=== PATIENT | male | born 1975 | race Caucasian/White ===

== ENCOUNTER 2023-11-04 12:37 | Outpatient (AMB) | payer MEDICARE, SELFPAY ==
--- NOTE | 2023-11-04 12:40 | AM.OFFWIN_ITS ---
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 Denies any recent fevers, chills, nausea or vomiting. Denies any H/o herpes. PFSH Social History Patient Tobacco Use Status: Current everyday Tobacco user Review of Systems Const All systems reviewed & are unremarkable except as noted in HPI and below Physical Exam Vital Signs: Last Vital Signs Temp 97.5 F 11/04/23 12:47 Pulse 93 11/04/23 12:47 BP 134/80 11/04/23 12:47 Pulse Ox 96 11/04/23 12:47 Oxygen Delivery Method Room Air 11/04/23 12:47 Const General: comfortable and no acute distress HEENT Head: Yes normocephalic and Yes atraumatic Ears: external ears normal and TM's normal bilaterally General nose exam: Normal nares present Face and sinus: Yes sinuses nontender Mouth: moist mucous membranes, lip abnormal and Abnormal oral and palatal mucosa present erythematous and vesicles (Upper and lower lips) Throat: Yes posterior oropharynx normal Resp Effort & Inspection: normal respiratory effort and able to speak in complete sentences Auscultation: clear to auscultation bilaterally Assessment & Plan Assessment & Plan (1) Cold sore: Code(s): B00.1 - Herpesviral vesicular dermatitis Plan: - Ordered HSV labs - May use OTC Abreva - Will start Oral Valtrex today. Orders: Orders Herpes Simplex Virus Ab IgG Today B00.1 - Herpesviral vesicular dermatitis Medications: New valacyclovir (Valtrex) 1,000 mg PO DAILY 5 days 5 tabs 0RF B00.1 - Herpesviral vesicular dermatitis Coding Level of Care Code New Pt Level 3 (39377) Diagnoses Cold sore B00.1 Time Spent (min) 15
[2023-11-04 12:47] VITALS: BP 134/80; PULSE 93; TEMP 36.4; O2SAT 96
== END 2023-11-04 13:23 | disposition home or self-care (01) ==
PROVIDERS: PCP Internal Medicine; Visit Provider Nurse Practitioner Family
DX: B00.1 Herpesviral vesicular dermatitis (principal)
CPT/HCPCS: 99203

== ENCOUNTER 2023-11-04 13:00 | Outpatient (REF) | payer MEDICARE, SELFPAY ==
[2023-11-07 19:13] LABS: Herpes Simplex Type 1 IgG <0.90 index; Herpes Simplex Type 2 IgG <0.90 index
== END 2023-11-04 13:01 | disposition home or self-care (01) ==
LOC: HO.HMGCLDS 13:00
PROVIDERS: Visit Provider Nurse Practitioner Family
DX: B00.1 Herpesviral vesicular dermatitis (principal)
CPT/HCPCS: 36415; 86695; 86696

== ENCOUNTER 2025-01-04 12:51 | Outpatient (AMB) | payer MEDICARE, SELFPAY ==
--- OUTSIDE RECORDS SUMMARY | 2025-01-04 13:29 | XMS_ITS | Clinical Summary ---
Author Organization [employer] Address [address] [place] [address] Care Team Providers Care Cadastral Surveyor Name Role Phone Unavailable Primary Care Provider Unavailabl e Encounters Date Type Department Care Team Description 12/24/2024 Telephone [facility] [address] [place] [address] Mely Monreal RN ER Follow-up 12/21/2024 Telephone [facility] [address] [place] [address] Fahad Dent MD New patient appt. from Last 3 Months Social History Tobacco Use Types Packs/Day Years Used Date Smoking Tobacco: Never Assessed Sex and Gender Information Value Date Recorded Sex Assigned at Male 07/12/2022 10:28 AM EDT Legal Sex Male 10:28 AM EDT Gender Identity Male 01/03/2025 9:35 AM EDT Sexual Orientation Straight 01/03/2025 9: 35 AM EDT Plan of Treatment Upcoming Encounters Date Type Department Care Team (Late st Contact Info) Description 01/07/2025 9:00 AM EDT Telemedicine [facility] [address] [place] [address] Fahad Dent MD [address] [place] [address] Health Maintenance Due Date Last Done Comments CT Colonography 1976 Colonoscopy 1976 Colorectal Cancer Screening 1976 Depression Screening 1976 FIT DNA/Cologuard 1976 FIT 1976 FOBT 1976 HIV Screening 1976 Lipid Panel 1976 SDOH Screening 1976 Sigmoidoscopy 1976 Alcohol/Substance Use Screening 1988 Tobacco Screening 1988 Family Planning (PISQ) 1991 Hepatitis C Screening 1994 Hepatitis B Vaccines (3 of 3 - 19+ 3-dose series) 12/22/2016 07/21/2016, 06/23/2016 DTaP/Tdap/Td Vaccines (2 - Td or Tdap) 04/16/2024 04/16/2014 COVID-19 Vaccine ( - season) 2024 06/02/2022, 07/31/2021, 12/31/2020, Additional history exists Influenza Vaccine (#1) 2024 06/23/2016, 2014 Zoster Vaccines (1 of 2) 2026 RSV Patients and Patients Aged 60 years or older (1 - 1-dose 75+ series) 2051 HIB Vaccines Aged Out No longer eligi ble based on patient's age to complete this topic HPV Vaccines Aged Out No longer eligi ble based on patient's age to complete this topic Hepatitis A Vaccines Aged Out No long er eligible based on patient's age to complete this topic IPV Vaccines Aged Out No longer eligi ble based on patient's age to complete this topic Meningococcal Vaccine Aged Out No deangelo bernard eligible based on patient's age to complete this topic Pneumococcal Vaccine: Pediatrics (0 to 5 Years) and At-Risk Patients (6 to 49) Years) Aged Out No longer eligible based on patient's age to complete this topic RSV under 20 months Aged Out No longe r eligible based on patient's age to complete this topic Rotavirus Vaccines Aged Out No longer eligible based on patient's age to complete this topic Insurance [facility]
--- OUTSIDE RECORDS SUMMARY | 2025-01-04 13:29 | XMS_ITS | Clinical Summary ---
Author Organization [address] Address [address] [place] [phone] Phone Care Team Providers Care Human Resources Talent Manager Name Role Phone Van Warner MD Primary Care Provider [phone] Allergies Active Allergy Reactions Criticality Noted Date Comments Haloperidol 09/20/2016 EPS Medications OLANZapine (ZyPREXA) 10 mg tablet Take 1 Tab by mouth at bedtime. 10/27/2017 Active OLANZapine (ZyPREXA) 5 mg tablet Take 1 Tab by mouth every morning. 10/27/2017 Active divalproex (DEPAKOTE) [address] tablet Take 1 Tab by mouth 2 times daily. 10/14/2017 Active memantine (NAMENDA) 10 mg tablet Take 1 Tab by mouth 2 times daily. 05/10/2017 Active donepeziL (ARICEPT) 10 mg tablet Take 10 mg by mouth at bedtime. Active buprenorphine-na loxone (SUBOXONE) 12-[address] under the tongue. 09/20/2016 Active ipratropium/albu terol sulfate (IPRATROPIUM-ALB UTEROL INHL) Inhale 2 Puffs into the lungs 4 times daily as needed (wheeze, tightness, cough). 09/20/2016 Active LORazepam (ATIVAN) 0.5 mg tablet Take 1 Tab by mouth every 8 hours as needed for Anxiety. 06/23/2016 Active sertraline (ZOLOFT) 100 mg tablet Take 100 mg by mouth daily. Active Active Problems Problem Noted Date Diagnosed Date Cognitive change 01/04/2017 Hyperlipidemia 06/24/2016 Neck pain 06/24/2016 Anxiety 03/27/2016 Depression 03/27/2016 Lumbago 04/26/2008 Immunizations Name Administration Dates Next Due Hepatitis B (Iqbuuqo-F-Lgmig , Recombivax HB-Adult) 19yo and older 07/21/2016,06/23/2016 Influenza trivalent, with pr eservative (Fluzone; Afluria) 6mo and older 06/23/2016,09/17/2014 Tdap Tetanus diptheria acell ular pertussis (Boostrix; Adacel) 7yo and older 04/16/2014 Surgical History Surgery Date Site/Laterality Comments OTHER SURGICAL HISTORY 2007 PROCEDURE: HISTORY OTHER; COMMENT: work injury ligament rt calf Medical History Medical History Date Comments Lumbago 04/26/2008 DX:Lumbago Tobacco use 02/02/2013 DX:Tobacco use Depression 03/27/2016 DX:Depression Anxiety 03/27/2016 DX:Anxiety Family History Medical History Relation Name Comments Autoimmune disease Neg Hx Breast cancer Neg Hx Colon cancer Neg Hx Coronary artery disease Neg Hx Diabetes Neg Hx Heart attack Neg Hx Heart failure Neg Hx Hyperlipidemia Neg Hx Hypertension Neg Hx Mental illness Neg Hx Prostate cancer Neg Hx Sleep apnea Neg Hx Thyroid disease Neg Hx Relation Name Status Comments Aunt Alive breast cancer f athers side Father NE Maternal Grandmother breast cancer Mother Alive htn Sister 1 Alive Sister 2 Alive Social History Tobacco Use Types Packs/Day Years Used Date Smoking Tobacco: Some Days Cigarettes Smokeless Tobacco: Never Alcohol Use Standard Drinks/Week Comments Yes 0 (1 standard drink = 0.6 oz pur e alcohol) Sex and Gender Information Value Date Recorded Sex Assigned at Not on file Legal Sex Male 9:03 PM EST Gender Identity Not on file Sexual Orientation Not on file Obstetrics History Plan of Treatment Health Maintenance Due Date Last Done Comments Pneumococcal Vaccine: Pediatrics (0 to 5 Years) and At-Risk Patients (6 to 64 Years) (1 of 2 - PCV) 1995 Hepatitis B Vaccines (3 of 3 - 19+ 3-dose series) 12/22/2016 07/21/2016, 06/23/2016 Colorectal Cancer Screening: Colonoscopy 08/22/2022 Depression Screening 08/22/2022 03/27/2016 Medicare Annual Wellness Visit 08/22/2022 Social Influencers of Health Screening 08/22/2022 Cholesterol Screening (Lipid Panel) 09/07/2022 09/07/2017 DTaP,Tdap,and Td Vaccines (2 - Td or Tdap) 04/16/2024 04/16/2014 COVID-19 Vaccine (2023-2 5 season) 2024 Influenza Vaccine (Season Ended) 2025 06/23/2016, 09/17/2014 HIV Screening Completed 09/25/2012 Hepatitis C Screening Completed 09/25/2012 HIB Vaccines Aged Out No longer eligi [...] on patient's age to complete this topic MMR Vaccines Aged Out No longer eligi ble based on patient's age to complete this topic Meningococcal ACWY Vaccine Aged Out N o longer eligible based on patient's age to complete this topic Meningococcal B Vaccine Aged Out No l onger eligible based on patient's age to complete this topic RSV Immunization Patients Under 20 months Aged Out No longer eligible b ased on patient's age to complete this topic Varicella Vaccines Aged Out No longer eligible based on patient's age to complete this topic Procedures Procedure Name Priority Date/Time Associated Diagnosis Comments LIPID PANEL Routine 09/07/2017 DEPRESSION SCREENING Routine 03/27/2016 HEPATITIS C SCREENING Routine 09/25/2012 HIV SCREENING Routine 09/25/2012 from Last 3 Months or Most Recently Relevant to Health Maintenance Results * (ABNORMAL) Lipid panel (09/07/2017) LDL/HDL Ratio 6(A) 0 - 4 Triglycerides 89 0 - 150 mg/dL Cholesterol 171 0 - 200 mg/dL HDL 28(A) >=40 mg/dL LDL Cholesterol 126(A) 0 - 100 mg/dL Blood Venous blood specimen / Unknown Historical Provider LAB BLOOD ORDERABLES Harper l Result * Depression Screening (03/27/2016) Depression Screening abstracted Historical Provider HEALTH MAINTENANCE Final Result * HIV Screening (09/25/2012) HIV Screening abstracted Historical Provider HEALTH MAINTENANCE Final Result * Hepatitis C Screening (09/25/2012) Hepatitis C Screening abstracted Historical Provider HEALTH MAINTENANCE Final Result from Last 3 Months or Most Recently Relevant to Health Maintenance Insurance [employer] Care Teams Human Resources Talent Manager Relationship Specialty Start Date End Date Van Warner MD [address] [place] [address] PCP - General Internal Medicine 06/29/22
--- NOTE | 2025-01-04 14:00 | AM.OFFWIN_ITS ---
Intake Vital Signs 01/04/25 14:01 Weight 219 lb BP 140/100 H Blood Pressure Location Rt brachial Position Sitting Pulse 83 Pulse Source Pulse Oximeter Pulse Oximetry (%) 98 Oxygen Delivery Method Room Air Intake Visit Reasons: EP-High bp 158 over 80, bug bite arms & legs rash Intake Note: Patient here for rash behind left knee that has been there for a couple of weeks. Patient Tobacco Use Status: Current everyday Tobacco user Allergies No Known Allergies Allergy (Verified 01/04/25 14:01) Do you need a note to return to daycare/school/sports/work: No HPI HPI Comments History of Present Illness Details History of Present Illness - The patient is a 49-year-old male pres enting with elevated blood pressures and 2 different skin issues. - Onset of dizziness led the patient to independently check blood pressure, noted elevated in the 180s on a wrist cuff he bought at [facility]. He went to an urgent care and they sent him to the ED. He has that paperwork with him today. Emergency visit results: normal CBC, CMP, normal EKG, normal d dimer, troponins and normal CXR, negative for DVT BL UE via ultrasound. - Patient denies previous hypertension h istory, no past antihypertensive therapies. - No symptoms today, no FROBES, dizziness or lightheadedness or chest pain. - Also c/o suspected poison manjinder dermatit is likely secondary to gardening activities and potential cellulitis. - He also has a bug bite that he sustain ed while in [place] about a month ago, he says the areas now tender and warm and red and the redness seems to be spreading. He is on in the back of his left knee. He denies fevers - No primary care follow-up until new pt appt with Franco Gastelum NP in [facility] on August 23 scheduled, exploring options to expedite this. He did call Adult Medicine and is waiting for a call back. Physical Exam General: Cooperative, healthy appearing, comfortable, no acute distress and well developed Orientation: Patient oriented x3 Limitations: Limited Head: Normal to inspection Ears: Hearing grossly normal bilaterally Nose: Normal External nose present Face and sinus: Normal facial exam Eyes: Appearance normal, both eyes and all related structures Neck: Normal visual inspection and Yes full ROM Respiratory: Normal respiratory effort and able to speak in complete sentences. Skin: Posterior left leg has very large area in the back of the knee which slightly indurated erythematous and warm. Bilateral upper extremities have areas of short linear erythematous rasied rash, mostly on the forearms, no warmth. He also has an area of a raised erythematous area on his right knee, no warmth. Neuro: Patient oriented x3 Extremities: Normal to inspection [facility] Social History Patient Tobacco Use Status: Current everyday Tobacco user Review of Systems Const All systems reviewed & are unremarkable except as noted in HPI and below Physical Exam Vital Signs: Last Vital Signs Pulse 83 01/04/25 14:01 BP 140/100 H 01/04/25 14:01 Pulse Ox 98 01/04/25 14:01 Oxygen Delivery Method Room Air 01/04/25 14:01 Assessment & Plan Assessment & Plan (1) Cellulitis: Code(s): L03.90 - Cellulitis, unspecified Qualifiers: Site of cellulitis: extremity Site of cellulitis of extremity: lower extremity Laterality: left Qualified Code(s): L03.116 - Cellulitis of left lower limb Plan: The patient was prescribed Keflex to treat the cellulitis, administered every six hours for one week. The treatment plan includes precautionary advice to monitor for increased symptoms requiring potential doxycycline. Patient was informed and verbally consented to the use of an ambient scribe for clinic note documentation during this visit. (2) Contact dermatitis: Code(s): L25.9 - Unspecified contact dermatitis, unspecified cause Qualifiers: Contact dermatitis type: allergic Contact dermatitis trigger: non-food plants Qualified Code(s): L23.7 - Allergic contact dermatitis due to plants, except food Plan: Triamcinolone cream provided for the rash likely due to poison manjinder dermatitis. (3) Elevated blood pressure reading without diagnosis of hypertension: Code(s): R03.0 - Elevated blood-pressure reading, without diagnosis of hypertension Plan: Patient is mildly hypertensive 140/100, asymptomatic today, he all of his labs he had in the emergency department looked completely normal along with the DVT of both upper extremities a chest x-ray and an EKG. I was able to obtain an appointment for the patient to establish care at [facility] on TuesdayJanuary 30 at 13:15. I gave this information to the patient and asked him to bring both his paperwork from his ED visit and any other medical records he has to this visit along with his insurance card and license. [place] of the [place] so this appointment will work well with his schedule. In the meanwhile, I did recommend he eat a low-salt/no salt diet as well as quit smoking as both of these things will positively impact his blood pressures. He does know if he has acute symptoms such as headache dizziness or lightheadedness along with an elevated blood pressure, he should go to the emergency department. Medications: New cephalexin 500 mg PO Q6H 28 caps 0RF triamcinolone acetonide 0.1% 1 appl topical BID 80 grams 0RF Coding Level of Care Code Est Pt Level 4 (60097) Diagnoses Cellulitis of left lower extremity L03.116 Site of cellulitis: extremity Site of cellulitis of extremity: lower extremity Laterality: left Allergic contact dermatitis due to plants, except food L23.7 Contact dermatitis type: allergic Contact dermatitis trigger: non-food plants Elevated blood pressure reading without diagnosis of hypertension R03.0
[2025-01-04 14:01] VITALS: BP 140/100; PULSE 83; O2SAT 98
== END 2025-01-04 14:29 | disposition home or self-care (01) ==
PROVIDERS: PCP Internal Medicine; Visit Provider Physician Assistant
DX: L03.116 Cellulitis of left lower limb (principal); L23.7 Allergic contact dermatitis due to plants, except food; R03.0 Elevated blood-pressure reading, without diagnosis of hypertension

== ENCOUNTER → 2025-01-04 12:51 | Outpatient (BNVA) | payer MEDICARE, SELFPAY | PROVIDERS: PCP Internal Medicine; Visit Provider Physician Assistant | DX: L03.116 Cellulitis of left lower limb (principal); L23.7 Allergic contact dermatitis due to plants, except food; R03.0 Elevated blood-pressure reading, without diagnosis of hypertension | CPT/HCPCS: 99212 ==

== ENCOUNTER 2025-01-30 13:05 | Outpatient (AMB) | payer MEDICARE, SELFPAY ==
--- NOTE | 2025-01-30 13:10 | A.OFFPC_ITS ---
Vital Signs 01/30/25 13:15 Height 5 ft 8 in Weight 215 lb BMI 32.7 BP 145/81 H Respiration 14 Pulse 77 Pulse Source Pulse Oximeter Temp 97.7 F Temp Source Temporal Artery Scan Pulse Oximetry (%) 99 Oxygen Delivery Method Room Air Intake Visit Reasons: establish care; HTN Asset Protection Representative Required: No Accompanied by: Self / Same As Patient Allergies No Known Allergies Allergy (Verified 01/30/25 13:30) Medication List - Last Reconciled 01/30/25 by Elsa Campos PA-C donepezil 10 mg PO BEDTIME olanzapine 10 mg PO BEDTIME Tobacco use date assessed: 01/30/25 Dental Screening Dental Screen Date: 01/30/25 Did you have a dental visit in the last 12 months?: No Did you have a dental problem in the last 6 months where you did not have access to dental care?: No Was dental information given to patient?: Patient has dentist HPI establish care; HTN HPI Details The patient is a 49-year-old male presenting to establish care for hypertension management. He reports previous management challenges due to insurance coverage issues and wishes to implement medication therapy to address his elevated blood pressure. Previously, he experienced an emergency room evaluation due to chest pain, with diagnostics reporting no acute cardiovascular event. The patient experiences challenges related to dementia, attributed to a significant history of concussions prior drug usage, and is managed by a neurologist. He currently uses donepezil and olanzapine prescribed by the neurologist Dr. Chavez. The patient has resolved contact dermatitis and cellulitis from an insect bite in [place]. Family history is significant for premature cardiovascular disease, leading to relatives' mortality, prompting increased concern over his hypertension management. The patient is aware of Cologuard screening for colorectal cancer and has no known family history of colorectal malignancy. Social History - Employment: Previously worked in the [email or web address] department, currently unspecified. - History of Substance Use: Previously o n Suboxone, long-term abstinent. - Family History: Several male relatives with premature cardiac . - Recent Travel: Visited nereyda Edgar of cellulitis from bug bite in [place]. - Family: Informed consent from Dr. Fatimah ruby for dementia management. [facility] Medical History (Updated 01/30/25 @ 13:50 by Elsa Campos PA-C) Class 1 obesity with body mass index (BMI) of 32.0 to 32.9 in adult Hypertension History of substance abuse Establishing care with new doctor, encounter for Dementia Family History Father Heart attack Mother No problems noted. Social History Housing: House Alcohol intake: current Alcohol intake frequency: a few times a month Patient Tobacco Use Status: Current everyday Tobacco user Tobacco use type: Cigarette Cigarette Packs Per Day: 1 Cigarettes Per Day: 20 service: No Current occupational status: disabled Cognitive needs: No Hearing needs: No Vision needs: Yes (reading glasses) Questionnaire PHQ-9 Over the last 2 weeks, how often have you been bothered by any of the following problems? 1. Little interest or pleasure in doing things: not at all 2. Feeling down, depressed, or hopeless: not at all 3. Trouble falling or staying asleep, or sleeping too much: not at all 4. Feeling tired or having little energy: not at all 5. Poor appetite or overeating: not at all 6. Feeling bad about yourself - or that you are a failure or have let yourself or your family down: not at all 7. Trouble concentrating on things, such as reading the newspaper or watching television: not at all 8. Moving or speaking so slowly that other people could have noticed. Or the opposite - being so fidgety or restless that you have been moving around a lot more than usual: not at all 9. Thoughts that you would be better off or of hurting yourself in some way: not at all Total score: 0 Depression Screening Interpretation: Negative Depression Screening Done: Yes 13743 - PHQ-9 Billing: Yes Source: Developed by Drs. Sanchez Mar, Bruna Funk, Jeffrey Monique and colleagues, with an educational mendez from [employer]. Thrive Questionnaire Date Thrive assessed: 01/30/25 I am a: Patient What is your living situation today?: I have a steady place to live Within the past 12 months, did the food you bought not last and you didn't have the money to get more?: Never true Within the past 12 months, did you worry whether your food would run out before you got money to buy more?: Never true Do you have trouble paying for medicines?: No Do you have trouble getting transportation to medical appointments?: No Do you have trouble paying your heating and electricity bill?: No Do you have trouble taking care of your child, family member or friend?: No Do you have trouble with day-to-day activities such as bathing, preparing meals, shopping, managing finances, etc.?: No Are you currently unemployed and looking for a job?: No Are you interested in more education?: No Please select the resources that you would like help with: None THRIVE Score: 0 AUDIT C Alcohol Use Questionnaire (AUDIT-C) 1. How often do you have a drink containing alcohol?: 2-4 times a month 2. How many drinks containing alcohol do you have on a typical day when you are drinking?: 1 or 2 3. How often do you have six or more drinks on one occasion?: Never Total Score: 2 Score Reviewed/Action Taken: No NAZANIN-7 AMB Questionnaire NAZANIN-7 Date NAZANIN - 7 assessed: 01/30/25 Feeling nervous, anxious, or on edge: 0 = Not at all Not being able to stop or control worryin = Not at all Worrying too much about different things: 0 = Not at all Trouble relaxin = Not at all Being so restless that it is hard to sit still: 0 = Not at all Becoming easily annoyed or irritable: 0 = Not at all Feeling afraid as if something awful might happen: 0 = Not at all Total NAZANIN-7 score (0-4 normal; 5-9 mild; 10-14 moderate; 15-21 severe): 0 Source: Developed by Drs. Sanchez Mar, Bruna Funk, Jeffrey Monique and colleagues, with an educational mendez from [employer]. NAZANIN-7 Assessment Billing NAZANIN-7 Assessment Tool: NAZANIN-7 Assessment 27116 Review of Systems Const Details: - Eyes: Reports eye infection. - Neurological: Reports history of concussions, dementia; denies memory loss. - Cardiovascular: Reports normal past unspecific chest pain evaluation, denies current symptoms. - Dermatologic: Reports past resolved insect bite with cellulitis. - Gastrointestinal: Denies recent colonoscopy but received Cologuard. - Respiratory: Denies shortness of breath or chest pain. - General: No unintentional weight changes, denies swelling. Physical exam (Primary Care) Vital Signs: Last Vital Signs Temp 97.7 F 01/30/25 13:15 Pulse 77 01/30/25 13:15 Resp 14 01/30/25 13:15 BP 145/81 H 01/30/25 13:15 Pulse Ox 99 01/30/25 13:15 Oxygen Delivery Method Room Air 01/30/25 13:15 Care Plan Goal for BP management: <140/90 patient will be started on lisinopril 10 mg daily BMI result Body Mass Index 32.7 BMI Assessment/Plan discussion: High BMI High, discussed plan: lifestyle, weight reduction, dietary, physical activity and alcohol moderation Tobacco/Smoking Status: Tobacco use Status Tobacco use date assessed 01/30/25 01/30/25 13:13 Patient Tobacco Use Status Current everyday Tobacco 01/30/25 13:22 Tobacco use type Cigarette 01/30/25 13:22 PHQ-9: PHQ-9 Score PHQ-9: Total score 0 01/30/25 13:22 Depression Screening Interpretation: Negative Thrive Assessment: Date of Thrive Assessment Date Thrive assessed 01/30/25 01/30/25 13:13 Const Other: Appearance: Alert. Oriented X3. No acute distress. Head: Normal external exam. Normocephalic. Atraumatic. Eyes: Pupils are equal, round, and reactive to light. Extraocular movements intact. Conjunctiva and sclera normal. Eyelids normal. Note: Patient reports an eye infection due to a blocked eye gland, not pink eye. Ears: External auditory canal normal. Tympanic membranes normal. Throat: Pharynx normal. Uvula midline. Moist mucous membranes. Neck: Normal inspection. Neck supple. Full range of motion. No adenopathy. Thyroid Normal. No meningeal signs. No neck mass noted. Cardiovascular: Normal heart rate and rhythm. Heart sound normal. No murmurs noted. Pulses normal throughout. Respiratory: No respiratory distress. Painless inspiration. Breath sounds normal. No wheezes/rales/rhonchi noted. Chest nontender. No accessory muscle usage noted or decreased air movement noted. Abdomen: Soft and nontender. Bowel sounds normal in all 4 quadrants. No distention noted. No organomegaly noted. No visible injury noted. Back: No costovertebral angle tenderness. Full range of motion noted. Skin: Skin warm and dry. Normal skin color. Normal skin turgor. No rashes/lesions/lacerations noted. Extremities: No lower extremity edema. Extremities exhibit normal range of motion. Extremities nontender. Neuro: Oriented X 3. No motor deficit. No sensory deficit. Reflexes normal. Note: Patient reports memory loss and has a stem cell patch on the head. History of multiple concussions and some form of dementia. Results Reviewed Results Reviewed: - Labs: CBC, CMP, D-dimer, Troponin (all reported normal). - Tests: Cologuard ordered. - Diagnostics: Eye and neurological evaluations as described, no new results. Coding Level of Care Code Est Pt Level 4 (06900) Complex EM visit Add On G2211 Diagnoses Establishing care with new doctor, encounter for Z76.89 Dementia F03.90 Hypertension I10 Class 1 obesity with body mass index (BMI) of 32.0 to 32.9 in adult E66.811; Z68.32 Additional Codes PHQ-9 - 11800 - PHQ-9 Billing: Yes ([id number]) NAZANIN-7 Assessment Billing - NAZANIN-7 Assessment Tool: NAZANIN-7 Assessment 81828 ([id number]) Assessment & Plan Assessment & Plan (1) Establishing care with new doctor, encounter for: Code(s): Z76.89 - Persons encountering health services in other specified circumstances Category: Medical (2) Dementia: Comment: Followed by Dr. Chavez Code(s): F03.90 - Unspecified dementia, unspecified severity, without behavioral disturbance, psychotic disturbance, mood disturbance, and anxiety Category: Medical Plan: Plan: Continued management under Dr. Chavez with no change in treatment. Condition is chronic and stable continue to monitor. (3) Hypertension: Code(s): I10 - Essential (primary) hypertension Category: Medical Plan: Plan: Treatment initiation with lisinopril 10 mg daily. Monitoring of blood pressure and follow-up visit planned for one month. Home monitoring instructions provided. Condition is chronic and stable continue to monitor. (4) Class 1 obesity with body mass index (BMI) of 32.0 to 32.9 in adult: Code(s): E66.811 - Obesity, class 1; Z68.32 - Body mass index [BMI] 32.0-32.9, adult Category: Medical Plan Plan Patient was informed and verbally consented to the use of an ambient scribe for clinic note documentation during this visit. 1. Essential Hypertension Plan: Treatment initiation with lisinopril 10 mg daily. Monitoring of blood pressure and follow-up visit planned for one month. Home monitoring instructions provided. 2. Dementia Plan: Continued management under Dr. Johnson with no change in treatment. 3. Elevated Blood Glucose Plan: Comprehensive lab work inclusive of hemoglobin A1c. 4. Contact Dermatitis Plan: Condition resolved, no additional treatment. 5. History Of Substance Use Disorder Plan: Acknowledged past history with no active issues or treatment required. During the visit, I discussed with the patient the plan to initiate lisinopril for hypertension management, highlighting its benefits and potential adverse effects. We covered the importance of self-monitoring blood pressure and identified follow-up care requirements. I informed the patient about angioedema as a rare but serious side effect, emphasizing the need for urgent medical evaluation if it occurs. For dementia, I ensured continuity of care with Dr. Johnson. We reviewed the past resolution of cellulitis and dermatitis post-insect bite and did not consider further treatment necessary. We reviewed the patient's recent eye symptoms and established no immediate interventions were needed due to the expected self-resolution. Orders: Orders Complete Blood Count Auto Diff Today Z00.00 - Encounter for general adult medical examination without abnormal findings Liver Panel Today Z00.00 - Encounter for general adult medical examination without abnormal findings Magnesium Today Z00.00 - Encounter for general adult medical examination without abnormal findings Vitamin B12 and Folate Today Z00.00 - Encounter for general adult medical examination without abnormal findings Vitamin D 25-OH Total Today Z00.00 - Encounter for general adult medical examination without abnormal findings PSA,Total (Free>4and<10) Today Z00.00 - Encounter for general adult medical examination without abnormal findings CT NG by PCR Today Z76.89 - Persons encountering health services in other specified circumstances Syphilis Screen Today Z76.89 - Persons encountering health services in other specified circumstances Herpes Simplex Virus Ab IgG Today Z76.89 - Persons encountering health services in other specified circumstances Comprehensive [place]. Panel Fast Today Z00.00 - Encounter for general adult medical examination without abnormal findings C Reactive Protein Today Z00.00 - Encounter for general adult medical examination without abnormal findings Hemoglobin A1c Today Z00.00 - Encounter for general adult medical examination without abnormal findings Lipid Panel Today Z00.00 - Encounter for general adult medical examination without abnormal findings TSH reflex Free T4 Today Z00.00 - Encounter for general adult medical examination without abnormal findings HIV Ab/Ag Today Z76.89 - Persons encountering health services in other specified circumstances Medications: New lisinopril 10 mg PO DAILY 30 tabs 0RF I10 - Essential (primary) hypertension Patient Instructions: - Take lisinopril 10 mg once daily, as prescribed. - Monitor your blood pressure regularly and record readings. - Return to the office in one month for a blood pressure check. - Complete blood tests as instructed before the next visit. - Be aware of potential side effects like cough or swelling; seek emergency care if serious side effects occur. - Complete and return the Cologuard test for colorectal cancer screening. - Maintain current medication regimen for dementia and check in with Dr. Johnson as needed. - Report any new or concerning symptoms immediately.
[2025-01-30 13:15] VITALS: BP 145/81; PULSE 77; RESP 14; TEMP 36.5; O2SAT 99; BMI 32.7
--- OUTSIDE RECORDS SUMMARY | 2025-01-30 13:41 | XMS_ITS | Clinical Summary ---
Author Organization [employer] Address [address] [facility] [address] [place] [address] Care Team Providers Care Inspector Of Dredging Name Role Phone Fahad Dent MD Primary Care Prov ider Encounters Date Type Department Care Team Description 01/07/2025 Telephone [facility] [address] [place] [address] Fahad Dent MD No Show 01/07/2025 Telephone [facility] [address] [place] [address] Fahad Dent MD 01/07/2025 Travel 12/24/2024 Telephone [facility] [address] [place] [address] Mely Monreal RN ER Follow-up 12/21/2024 Telephone [facility] [address] [place] [address] Fahad Dent MD New patient appt. from Last 3 Months Social History Tobacco Use Types Packs/Day Years Used Date Smoking Tobacco: Never Assessed Sex and Gender Information Value Date Recorded Sex Assigned at Male 07/12/2022 10:28 AM EDT Legal Sex Male 10:28 AM EDT Gender Identity Male 01/03/2025 9:35 AM EDT Sexual Orientation Straight 01/03/2025 9: 35 AM EDT Plan of Treatment Health Maintenance Due Date Last Done Comments CT Colonography 1976 Colonoscopy 1976 Colorectal Cancer Screening 1976 Depression Screening 1976 FIT DNA/Cologuard 1976 FIT 1976 FOBT 1976 HIV Screening 1976 Lipid Panel 1976 SDOH Screening 1976 Sigmoidoscopy 1976 Disability Screening 1976 Alcohol/Substance Use Screening 1988 Tobacco Screening [...] patient's age to complete this topic Insurance [facility] Care Teams Inspector Of Dredging Relationship Specialty Start Date End Date Fahad Dent MD [address] [place] [id number] PCP - General Internal Medicine 01/07/25
--- OUTSIDE RECORDS SUMMARY | 2025-01-30 13:41 | XMS_ITS | Clinical Summary ---
Author Organization [address] Address [address] [place] [id number] Phone Care Team Providers Care Systems Architecture Analyst Name Role Phone Van Warner MD Primary Care Provider [phone] Allergies Active Allergy Reactions Criticality Noted Date [...] Name Administration Dates Next Due Hepatitis B (Wnjafju-K-Ioalg , Recombivax HB-Adult) 19yo and older 07/21/2016,06/23/2016 [...] Alive breast cancer f athers side Father [place] Maternal Grandmother breast cancer Mother Alive htn [...] Maintenance Insurance [employer] Care Teams Systems Architecture Analyst Relationship Specialty Start Date End Date Van Warner MD [address] [place] [address] PCP - General Internal Medicine 06/29/22
== END 2025-01-30 13:45 | disposition home or self-care (01) ==
LOC: HO.HMCSH 13:05
PROVIDERS: PCP Internal Medicine; Visit Provider Physician Assistant Medical
DX: Z76.89 Persons encountering health services in other specified circumstances (principal); F03.90 Unspecified dementia, unspecified severity, without behavioral disturbance, psychotic disturbance, mood disturbance, and anxiety; I10 Essential (primary) hypertension; E66.811 Obesity, class 1; Z68.32 Body mass index [BMI] 32.0-32.9, adult

== ENCOUNTER → 2025-01-30 13:05 | Outpatient (BNVA) | payer MEDICARE, SELFPAY | PROVIDERS: PCP Internal Medicine; Visit Provider Physician Assistant Medical | DX: I10 Essential (primary) hypertension (principal); E66.811 Obesity, class 1; Z68.32 Body mass index [BMI] 32.0-32.9, adult; Z71.3 Dietary counseling and surveillance; Z76.89 Persons encountering health services in other specified circumstances | CPT/HCPCS: 96127; 99212 ==

== ENCOUNTER 2025-02-19 07:54 | Outpatient (REF) | payer MEDICARE, SELFPAY ==
--- OUTSIDE RECORDS SUMMARY | 2025-02-19 07:57 | XMS_ITS | Clinical Summary ---
Author Organization [employer] Address [address] [facility] [address] [place] [address] Care Team Providers Care Curling Machine Operator Name Role Phone Fahad Dent MD Primary Care Prov ider Encounters Date Type Department Care Team Description 01/07/2025 Telephone [facility] [address] [place] [address] Fahad Dent MD No Show 01/07/2025 Telephone [facility] [address] [place] [address] Fahad Dent MD 01/07/2025 Travel 12/24/2024 Telephone [facility] [address] [place] [address] Mely Monreal RN ER Follow-up 12/21/2024 Telephone [facility] MED [facility] PED[facility] [address] [place] [address] Fahad Dent MD New patient appt. from [...] 07/31/2021, 12/31/2020, Additional history exists Influenza Vaccine (Season Ended) 2025 06/23/2016, 09/17/2014 Zoster Vaccines (1 of 2) 2026 RSV [...] patient's age to complete this topic Insurance [facility] Care Teams Curling Machine Operator Relationship Specialty Start Date End Date Fahad Dent MD [address] [place] [id number] PCP - General Internal Medicine 01/07/25
[2025-02-19 10:28] LABS: MANUAL DIFF FLAG NO
[2025-02-19 10:34] LABS: Basophils Percent Auto 0.5 % (0-2); Eosinophils Absolute Auto 0.1 X10*3/uL (0.0-0.4); Eosinophils Percent Auto 0.9 % (0-4); Hematocrit 46.1 % (42.0-52.0); Hemoglobin 15.8 g/dl (14.0-18.0); Imm Gran Abs Auto 0.02 X10*3/uL (0.00-0.03); Imm Gran Pct Auto 0.2 % (0.0-0.4); Lymphocytes Absolute Auto 1.4 X10*3/uL (1.2-4.9); Mean Corpuscular HGB Conc 34.3 g/dl (31.0-36.0); Mean Corpuscular Hemoglobin 32.8 pg (27.0-33.0); Mean Corpuscular Volume 95.6 fL (80.0-98.0); Mean Platelet Volume 10.7 fL (9.4-12.4); Monocytes Absolute Auto 0.5 X10*3/uL (0.1-1.2); Monocytes Percent Auto 6.7 % (2-11); Neutrophils Percent Auto 74.7 % (45-73); Platelet Count 246 X10*3/uL (160-400); Red Blood Count 4.82 X10*6/uL (4.60-5.80); Red Cell Distribution Width 12.4 % (11.0-16.0)
[2025-02-19 10:55] LABS: Estimated Average Glucose 108 mg/dL; Hemoglobin A1c % 5.4 % (<6.0)
[2025-02-19 11:04] LABS: Alanine Aminotransferase 19 U/L (0-40); Albumin Level 4.6 g/dL (3.5-5.0); Alkaline Phosphatase 81 U/L (39-117); Anion Gap 13 (12-20); Aspartate Amino Transferase 28 U/L (5-37); Bilirubin Direct 0.3 mg/dL (0.0-0.5); Bilirubin Total 0.8 mg/dL (0.0-1.0); Blood Urea Nitrogen 10 mg/dL (9-16); C Reactive Protein < 0.10 mg/dL (< or = 0.50); Carbon Dioxide 25 mmol/L (22-29); Chloride 107 mmol/L (96-108); Cholesterol 184 mg/dL (<200); Estimated Glomerular Filt Rate > 60; Glucose Fasting 101 mg/dL (60-99); HDL Cholesterol 52 mg/dL (>40); LDL Cholesterol Calculated 119 mg/dL (<100); Magnesium 1.9 mg/dL (1.6-2.6); Potassium 4.5 mmol/L (3.3-5.1); Sodium 140 mmol/L (135-145); Total Protein 7.1 g/dL (6.5-8.0); Triglycerides 66 mg/dL (<150)
[2025-02-19 11:08] LABS: TSH reflex Free T4 0.94 uIU/mL (0.32-4.0); Vitamin D 25-OH Total 70.5 ng/mL (>30)
[2025-02-19 11:12] LABS: HIV AB/AG Nonreactive (Nonreactive); HIV Num 1 0.07 S/CO (0.00-0.99)
[2025-02-19 11:13] LABS: PSA,Total (Free>4and<10) 0.58 ng/mL (0.00-4.00)
[2025-02-19 11:15] LABS: Syphilis Screen Nonreactive (Nonreactive)
[2025-02-19 11:27] LABS: Vitamin B12 404 pg/mL (200-900)
[2025-02-19 12:09] LABS: CT PCR NOT DETECTED (Not Detect.); NG PCR NOT DETECTED (Not Detect.)
[2025-02-20 09:38] LABS: Herpes Simplex Type 1 IgG <0.90 index; Herpes Simplex Type 2 IgG <0.90 index
== END 2025-02-19 07:55 | disposition home or self-care (01) ==
LOC: HO.HMGCLDS 07:54
PROVIDERS: Visit Provider Physician Assistant Medical
DX: Z00.00 Encounter for general adult medical examination without abnormal findings (principal); Z76.89 Persons encountering health services in other specified circumstances
CPT/HCPCS: 80053; 80061; 80076; 82248; 82306; 82607; 82746; 83036; 83735; 84153; 84443; 85025; 86140; 86695; 86696; 86780; 87389; 87491; 87591

== ENCOUNTER 2025-02-26 09:19 | Outpatient (AMB) | payer MEDICARE, SELFPAY ==
--- NOTE | 2025-02-26 09:34 | MHC.PC.OV ---
Vital Signs 02/26/25 09:46 Height 5 ft 8 in Weight 212 lb BMI 32.2 BP 116/71 Respiration 14 Pulse 82 Pulse Source Pulse Oximeter Temp 98.1 F Temp Source Temporal Artery Scan Pulse Oximetry (%) 97 Oxygen Delivery Method Room Air Intake Visit Reasons: 1 month follow up BP Check Gamewell Operator Required: No Accompanied by: Self / Same As Patient Allergies No Known Allergies Allergy (Verified 02/26/25 10:00) Medication List - Last Reconciled 02/26/25 by Elsa Campos PA-C donepezil 10 mg PO BEDTIME lisinopril 10 mg PO DAILY olanzapine 10 mg PO BEDTIME Tobacco use date assessed: 01/30/25 Dental Screening Dental Screen Date: 01/30/25 HPI 1 month follow up BP Check HPI Details The patient is a 49-year-old male presenting for a follow-up on hypertension management. The patient has been on lisinopril 10 mg daily for the past month and reports no adverse effects such as cough, chest pain, or dizziness. Blood pressure readings have been stable, typically around 125/80 mmHg, with no episodes of hypotension. The patient has completed recent blood work, which was reported as satisfactory, with mild elevation in LDL which patient is on a statin for. The patient is scheduled for a six-month follow-up to continue monitoring blood pressure and overall health status. [facility] Medical History Chronic static encephalopathy History of multiple concussions Hyperlipidemia Class 1 obesity with body mass index (BMI) of 32.0 to 32.9 in adult Hypertension History of substance abuse Establishing care with new doctor, encounter for Dementia Family History Father Heart attack Mother No problems noted. Social History Housing: House Alcohol intake: current Alcohol intake frequency: a few times a month Patient Tobacco Use Status: Current everyday Tobacco user Tobacco use type: Cigarette Cigarette Packs Per Day: 1 Cigarettes Per Day: 20 service: No Current occupational status: disabled Cognitive needs: No Hearing needs: No Vision needs: Yes (reading glasses) Questionnaire PHQ-9 Over the last 2 weeks, how often have you been bothered by any of the following problems? 1. Little interest or pleasure in doing things: not at all 2. Feeling down, depressed, or hopeless: not at all 3. Trouble falling or staying asleep, or sleeping too much: not at all 4. Feeling tired or having little energy: not at all 5. Poor appetite or overeating: not at all 6. Feeling bad about yourself - or that you are a failure or have let yourself or your family down: not at all 7. Trouble concentrating on things, such as reading the newspaper or watching television: not at all 8. Moving or speaking so slowly that other people could have noticed. Or the opposite - being so fidgety or restless that you have been moving around a lot more than usual: not at all 9. Thoughts that you would be better off or of hurting yourself in some way: not at all Total score: 0 Depression Screening Interpretation: Negative Depression Screening Done: Yes 81792 - PHQ-9 Billing: Yes Source: Developed by Drs. Sanchez Mar, Bruna Funk, Jeffrey Monique and colleagues, with an educational mendez from [employer]. Thrive Questionnaire Date Thrive assessed: 01/30/25 I am a: Patient What is your living situation today?: I have a steady place to live Within the past 12 months, did the food you bought not last and you didn't have the money to get more?: Never true Within the past 12 months, did you worry whether your food would run out before you got money to buy more?: Never true Do you have trouble paying for medicines?: No Do you have trouble getting transportation to medical appointments?: No Do you have trouble paying your heating and electricity bill?: No Do you have trouble taking care of your child, family member or friend?: No Do you have trouble with day-to-day activities such as bathing, preparing meals, shopping, managing finances, etc.?: No Are you currently unemployed and looking for a job?: No Are you interested in more education?: No Please select the resources that you would like help with: None THRIVE Score: 0 AUDIT C Alcohol Use Questionnaire (AUDIT-C) 1. How often do you have a drink containing alcohol?: 2-4 times a month 2. How many drinks containing alcohol do you have on a typical day when you are drinking?: 1 or 2 3. How often do you have six or more drinks on one occasion?: Never Total Score: 2 Score Reviewed/Action Taken: No NAZANIN-7 AMB Questionnaire NAZANIN-7 Date NAZANIN - 7 assessed: 01/30/25 Feeling nervous, anxious, or on edge: 0 = Not at all Not being able to stop or control worryin = Not at all Worrying too much about different things: 0 = Not at all Trouble relaxin = Not at all Being so restless that it is hard to sit still: 0 = Not at all Becoming easily annoyed or irritable: 0 = Not at all Feeling afraid as if something awful might happen: 0 = Not at all Total NAZANIN-7 score (0-4 normal; 5-9 mild; 10-14 moderate; 15-21 severe): 0 Source: Developed by Drs. Sanchez Mar, Bruna Funk, Jeffrey Monique and colleagues, with an educational mendez from [employer]. NAZANIN-7 Assessment Billing NAZANIN-7 Assessment Tool: NAZANIN-7 Assessment 00621 Review of Systems Const Details: - Cardiovascular: Denies chest pain, dizziness, or hypotension. Physical exam (Primary Care) Vital Signs: Last Vital Signs Temp 98.1 F 02/26/25 09:46 Pulse 82 02/26/25 09:46 Resp 14 02/26/25 09:46 BP 116/71 02/26/25 09:46 Pulse Ox 97 02/26/25 09:46 Oxygen Delivery Method Room Air 02/26/25 09:46 Care Plan Goal for BP management: <140/90 at Goal BMI result Body Mass Index 32.2 BMI Assessment/Plan discussion: High BMI High, discussed plan: lifestyle, weight reduction, dietary, physical activity and alcohol moderation Tobacco/Smoking Status: Tobacco use Status Tobacco use date assessed 01/30/25 02/26/25 09:37 Patient Tobacco Use Status Current everyday Tobacco 02/26/25 09:37 Tobacco use type Cigarette 02/26/25 09:37 PHQ-9: PHQ-9 Score PHQ-9: Total score 0 02/26/25 09:51 Depression Screening Interpretation: Negative Thrive Assessment: Date of Thrive Assessment Date Thrive assessed 01/30/25 02/26/25 09:37 Const Other: Appearance: Alert. Oriented X3. No acute distress. Head: Normal external exam. Normocephalic. Atraumatic. Eyes: Pupils are equal, round, and reactive to light. Extraocular movements intact. Conjunctiva and sclera normal. Eyelids normal. Throat: Pharynx normal. Uvula midline. Moist mucous membranes. Neck: Normal inspection. Neck supple. Full range of motion. No adenopathy. Thyroid Normal. No meningeal signs. No neck mass noted. Cardiovascular: Normal heart rate and rhythm. Respiratory: No respiratory distress. Painless inspiration. Back: Full range of motion noted. Skin: Skin warm and dry. Normal skin color. Normal skin turgor. No rashes/lesions/lacerations noted. Extremities: Extremities exhibit normal range of motion. Results Reviewed Results Reviewed: - Labs: Blood work including LDL levels reported as satisfactory. Coding Level of Care Code Est Pt Level 3 (77771) Complex EM visit Add On G2211 Diagnoses Hypertension I10 Additional Codes NAZANIN-7 Assessment Billing - NAZANIN-7 Assessment Tool: NAZANIN-7 Assessment 80051 ([id number]) PHQ-9 - 29599 - PHQ-9 Billing: Yes ([id number]) Assessment & Plan Assessment & Plan (1) Hypertension: Code(s): I10 - Essential (primary) hypertension Category: Medical Plan Plan Patient was informed and verbally consented to the use of an ambient scribe for clinic note documentation during this visit. 1. Essential Hypertension The patient will continue on lisinopril as it is effectively managing blood pressure without adverse effects. Blood pressure readings are stable, and follow-up is scheduled in six months to reassess and ensure continued control. I discussed with the patient that his blood pressure is well-controlled with lisinopril, and there are no adverse effects reported. We agreed on a six-month follow-up to monitor his condition and adjust treatment if necessary. Patient Instructions: - Continue taking lisinopril as prescribed. - Monitor blood pressure regularly and report any significant changes. - Schedule a follow-up appointment in six months.
[2025-02-26 09:46] VITALS: BP 116/71; PULSE 82; RESP 14; TEMP 36.7; O2SAT 97; BMI 32.2
--- OUTSIDE RECORDS SUMMARY | 2025-02-26 09:58 | XMS_ITS | Clinical Summary ---
Author Organization [employer] Address [address] [place] [address] Care Team Providers Care Campaign Management Specialist Name Role Phone Fahad Dent MD Primary Care Prov ider Encounters Date Type Department Care Team Description 01/07/2025 Telephone [facility] [address] [place] [address] Fahad Dent MD No Show 01/07/2025 Telephone [facility] [address] [place] [address] Fahad Dent MD 01/07/2025 Travel 12/24/2024 Telephone [facility] [address] [place] [address] Mely Monreal RN ER Follow-up 12/21/2024 Telephone [facility] [address] [place] [address] Fahad Dent MD New patient appt. from [...] Years) and At-Risk Patients (6 to 49) Years Aged Out No longer eligible based on patient's age to complete this topic RSV under 20 months Aged Out No longe r eligible based on patient's age to complete this topic Rotavirus Vaccines Aged Out No longer eligible based on patient's age to complete this topic Insurance [facility] Care Teams Campaign Management Specialist Relationship Specialty Start Date End Date Fahad Dent MD [address] [place] [id number] PCP - General Internal Medicine 01/07/25
== END 2025-02-26 09:55 | disposition home or self-care (01) ==
LOC: HO.HMCSH 09:19
PROVIDERS: PCP Internal Medicine; Visit Provider Physician Assistant Medical
DX: I10 Essential (primary) hypertension (principal)

== ENCOUNTER → 2025-02-26 09:19 | Outpatient (BNVA) | payer MEDICARE, SELFPAY | PROVIDERS: PCP Internal Medicine; Visit Provider Physician Assistant Medical | DX: I10 Essential (primary) hypertension (principal) | CPT/HCPCS: 96127; 99212 ==

== ENCOUNTER 2025-07-03 10:01 | Outpatient (AMB) | payer MEDICARE, SELFPAY ==
--- NOTE | 2025-07-03 10:06 | A.OFFVIS_ITS ---
Intake Visit Reasons: 1 YR Allergies No Known Allergies Allergy (Verified 07/03/25 10:07) Medication List - Last Reconciled 07/03/25 by Crista Maynard CNP donepezil 10 mg PO BEDTIME lisinopril 10 mg PO DAILY olanzapine 10 mg PO BEDTIME HPI Comments Details: 50-year-old man with history of multiple concussions, polydrug abuse, and cog nitive difficulties suggestive of chronic static encephalopathy. He was doing okay. He was not sure how his memory was, but he was told he messed stuff up, like appointments. He was not driving, but would walk to stores in the area without issue. Sleep was up and down. Mood was okay. [facility] Medical History Chronic static encephalopathy History of multiple concussions Hyperlipidemia Class 1 obesity with body mass index (BMI) of 32.0 to 32.9 in adult Hypertension History of substance abuse Establishing care with new doctor, encounter for Dementia Family History Father Heart attack Mother No problems noted. Social History Housing: House Alcohol intake: current Alcohol intake frequency: a few times a month Patient Tobacco Use Status: Current everyday Tobacco user Tobacco use type: Cigarette Cigarette Packs Per Day: 1 Cigarettes Per Day: 20 service: No Current occupational status: disabled Cognitive needs: No Hearing needs: No Vision needs: Yes (reading glasses) Review of Systems Const Denies chills, Denies daytime sleepiness, Reports difficulty sleeping, Denies fatigue, Denies fever(s), Denies frequent falls, Denies headache(s), Denies increased appetite, Denies poor appetite, Denies snoring, Denies weakness, Denies weight gain and Denies weight loss Eyes Denies loss of vision ENT Denies vertigo, Denies dizziness and Denies headache(s) Card Denies chest pain at rest, Denies chest pain with activity, Denies syncope, Denies leg edema and Denies palpitations Resp Denies snoring GI Denies constipation, Denies heartburn, Denies diarrhea and Denies nausea Denies urinary frequency, Denies urinary incontinence and Denies urinary urgency Musc Denies abnormal gait, Denies numbness and Denies tingling Skin/Breast Denies dry skin and Denies rash Neuro Denies abnormal gait, Denies vertigo, Denies dizziness, Denies syncope, Denies frequent falls, Denies headache(s), Denies lack of coordination, Denies loss of vision, Reports memory loss, Denies numbness, Denies restless legs, Denies seizure-like activity, Denies tingling, Denies paresthesias, Denies tremor(s) and Denies weakness Psych Denies anxiety, Denies depression, Denies auditory hallucinations, Reports memory loss, Denies visual hallucinations and Denies suicidal ideation Endo Denies fatigue and Denies palpitations Physical Exam Const Other: General Appearance:? normal, in no acute distress. Skin:? no rashes, no significant birthmarks. Heart:? S1, S2 normal, no murmurs. Lungs:? clear anteriorly and posteriorly. Extremities:? no edema. Psych:? alert, cooperative with exam. Neuro Other: Mental Status:?Normal attention, flat affect.? Cranial Nerves:?Pupils are equal, round and reactive to light. External occular muscles are intact. Visual burris are full. Face is symmetrical. Facial sensations are normal. Tongue is midline. Palate elevates symmetrically. Shoulder shrugging is normal. Hearing to bedside conversation is normal. Sensory Exam:?....? Coordination:?No ataxia,?no titubation.? Gait Exam: Within normal limits. Cerebellar Signs:?Mucpep-dg-whdy is okay. Pronator Drift:?Not present.? Involuntary Movements:?No tremors seen.? Speech:?Normal.? Results Reviewed Results Reviewed: Meuropsych testing at [facility] in Oct 2016: multifactorial reasons for cognitive dysfunction MRI brain at in 2016: WN Routine EEG at office in Jun 2016: WN Assessment & Plan Assessment & Plan (1) Chronic static encephalopathy: Code(s): G93.49 - Other encephalopathy Category: Medical Plan: Continue donepezil 10mg 1 tablet at bedtime. (2) Multifactorial dementia: Code(s): F03.90 - Unspecified dementia, unspecified severity, without behavioral disturbance, psychotic disturbance, mood disturbance, and anxiety Category: Medical (3) History of multiple concussions: Code(s): Z87.820 - Personal history of traumatic brain injury Category: Medical (4) History of drug abuse: Code(s): F19.11 - Other psychoactive substance abuse, in remission Category: Medical Plan . Medications: Changed From donepezil 1x rx by covering provider 10 mg PO BEDTIME 30 tabs 2RF To donepezil 10 mg PO BEDTIME 90 tabs 3RF Coding Level of Care Code Est Pt Level 4 (94270) Diagnoses Chronic static encephalopathy G93.49 Multifactorial dementia F03.90 History of multiple concussions Z87.820 History of drug abuse F19.11
--- OUTSIDE RECORDS SUMMARY | 2025-07-03 12:09 | XMS_ITS | Clinical Summary ---
Author Organization [employer] Address [address] [place] [address] Care Team Providers Care Speedboat Operator Name Role Phone Unavailable Primary Care Provider Unavailabl e Social History Tobacco Use Types Packs/Day Years [...] or Tdap) 04/16/2024 04/16/2014 COVID-19 Vaccine ( season) 2025 06/02/2022, 07/31/2021, 12/31/2020, Additional history exists Influenza Vaccine (#1) 2025 06/23/2016, 2014 Zoster Vaccines (1 of 2) [...] patient's age to complete this topic Insurance [facility] [place] [place] [address]
--- OUTSIDE RECORDS SUMMARY | 2025-07-03 12:09 | XMS_ITS | Clinical Summary ---
Author Organization [address] Address [address] [place] [phone] Phone Care Team Providers Care Paint Coating Machine Operator Name Role Phone Van Warner MD Primary Care Provider [phone] Allergies Active Allergy Reactions Criticality Noted Date [...] Anxiety 03/27/2016 Depression 03/27/2016 Lumbago 04/26/2008 Immunizations Immunization Administration Dates Next Due Hepatitis B (Jquuhjt-G-Ztgxz , Recombivax HB-Adult) 19yo and older 07/21/2016,06/23/2016 [...] Alive breast cancer f athers side Father [place] Maternal Grandmother breast cancer Mother Alive htn [...] Health Maintenance Due Date Last Done Comments Colorectal Cancer Screening: Colonoscopy 1976 Pneumococcal Vaccine: Pediatrics (0 to 5 Years) and At-Risk Patients (6 to 49 Years) (1 of 2 - PCV) 1995 Hepatitis B Vaccines (3 of 3 - 19+ 3-dose series) 12/22/2016 07/21/2016, 06/23/2016 Medicare Annual Wellness Visit 08/22/2022 Social Influencers of Health Screening 08/22/2022 Cholesterol Screening (Lipid Panel) 09/07/2022 09/07/2017 DTaP,Tdap,and Td Vaccines (2 - Td or Tdap) 04/16/2024 04/16/2014 Depression Screening 09/12/2024 03/27/2016 COVID-19 Vaccine (1 - 2023-2 5 season) 2025 Influenza Vaccine (#1) 2025 6, 09/17/2014 RSV Immunization Adult Patients (1 - 1-dose 75+ series) 2051 HIV Screening Completed 09/25/2012 Hepatitis C Screening [...] mg/dL Blood Venous blood specimen / Unknown us Historical Provider LAB BLOOD ORDERABLES Harper l [...] Maintenance Insurance [employer] MEDICARE Care Teams Paint Coating Machine Operator Relationship Specialty Start Date End Date Vna Warner MD [address] [place] [address] PCP - General Internal Medicine 06/29/22
--- OUTSIDE RECORDS SUMMARY | 2025-07-03 12:09 | XMS_ITS | Clinical Summary ---
Author Organization [facility] Address [address] [facility] [address] [place] [phone] Phone Care Team Providers Care High Speed Printer Operator Name Role Phone Devonte Loya MD Primary Care Provi kalpana Allergies Active Allergy Reactions Criticality Noted Date Comments Haloperidol 09/04/2021 Medications divalproex (DEPAKOTE ER) 500 MG ER 24 hr tablet Take 500 mg by mouth 2 (two) times a day. 07/27/2021 Active donepeziL (ARICEPT) 10 MG tablet Take 10 mg by mouth nightly at bedtime. 07/21/2021 Active OLANZapine (ZYPREXA) 10 MG tablet Take 10 mg by mouth daily. 07/28/2021 Active amoxicillin (AMOXIL) 500 MG capsule Take 1 capsule (500 mg total) by mouth 3 (three) times a day. 30 capsule 09/04/2021 Active Active Problems Problem Noted Date Diagnosed Date Memory changes 09/04/2021 Generalized anxiety disorder 09/04/2021 Immunizations No known immunizations Social History Tobacco Use Types Packs/Day Years Used Date Smoking Tobacco: Every Day Cigarettes Smokeless Tobacco: Never Education Answer Date Recorded Are you interested in more education? Not on girma e 01/08/2023 Are you concerned about learning? Not on file 01/08/2023 No 01/08/2023 No 01/08/2023 Digital Access Answer Date Recorded No 02/06/2023 No 02/06/2023 No 02/06/2023 Reliable internet access at home? Not on file 02/06/2023 Device with a working camera? Not on file Sex and Gender Information Value Date Recorded Sex Assigned at Not on file Legal Sex Male 12:52 PM EST Gender Identity Not on file Sexual Orientation Not on file Last Filed Vital Signs Vital Sign Reading Time Taken Comments Blood Pressure 150/86 09/04/2021 1:41 PM EST Pulse 94 09/04/2021 1:35 PM EST Temperature 37.1 C (98.8 F) 09/04/2021 1:35 PM EST Respiratory Rate 18 09/04/2021 1:35 PM EST Oxygen Saturation 96% 09/04/2021 1:3 5 PM EST Inhaled Oxygen Concentration - - Weight 131.5 kg (290 lb) 09/04/2021 1:3 5 PM EST patient reports Height - - Body Mass Index - - Plan of Treatment Health Maintenance Due Date Last Done Comments Adult Td,Tdap Booster 1976 LIPID PANEL 1976 VALPROIC ACID (DEPAKENE) LEVEL 1976 DEPRESSION SCREENING 1988 SMOKING Hx and SMOKELESS TOB ACCO SCREENING 1989 HEPATITIS C SCREENING 1994 HIV ONE-TIME SCREENING (18-6 5 YEARS) 1994 PNEUMOCOCCAL VACCINES (0-49 years) (1 of 2 - PCV) 1995 COLOGUARD 2021 COLONOSCOPY 2021 COLORECTAL CANCER SCREENING 2021 FIT TEST 2021 FOBT 2021 SIGMOIDOSCOPY 2021 VIRTUAL COLONOSCOPY 2021 INFLUENZA VACCINE (#1) 2025 COVID-19 VACCINE (1 - 2024-2 6 season) 2025 HEPATITIS A VACCINES Aged Out No long er eligible based on patient's age to complete this topic HIB VACCINES Aged Out No longer eligi ble based on patient's age to complete this topic MENINGOCOCCAL VACCINES (ACWY) Aged Out No longer eligible based on patient's age to complete this topic MENINGOCOCCAL VACCINES (B) Aged Out N o longer eligible based on patient's age to complete this topic Medical Devices Not on file Insurance [facility] MEDICARE REPLACEMENT MEDICARE REPLACEMENT MEDICARE REPLACEMENT MEDICARE REPLACEMENT MEDICARE REPLACEMENT MEDICARE REPLACEMENT MEDICARE REPLACEMENT [facility] MEDICARE REPLACEMENT [facility] MEDICARE REPLACEMENT Care Teams High Speed Printer Operator Relationship Specialty Start Date End Date Devonte Loya MD [address] [place] [address] PCP - General Family Medicine 09/04/21 Additional Source Comments The information contained in this document represents components of the legal health record. It is not the complete legal health record.[facility]
== END 2025-07-03 10:18 | disposition home or self-care (01) ==
LOC: HO.HSM 10:01
PROVIDERS: PCP Internal Medicine; Referring Provider Internal Medicine; Visit Provider Registered Nurse
DX: G93.49 Other encephalopathy (principal); F03.90 Unspecified dementia, unspecified severity, without behavioral disturbance, psychotic disturbance, mood disturbance, and anxiety; Z87.820 Personal history of traumatic brain injury; F19.11 Other psychoactive substance abuse, in remission
CPT/HCPCS: 99214

== ENCOUNTER → 2025-07-03 10:01 | Outpatient (BNVA) | payer MEDICARE, SELFPAY | PROVIDERS: PCP Internal Medicine; Referring Provider Internal Medicine; Visit Provider Registered Nurse | DX: G93.49 Other encephalopathy (principal); F03.90 Unspecified dementia, unspecified severity, without behavioral disturbance, psychotic disturbance, mood disturbance, and anxiety; F19.11 Other psychoactive substance abuse, in remission; Z87.820 Personal history of traumatic brain injury | CPT/HCPCS: 99212 ==